=== PATIENT | male | born 1940 | race Caucasian/White ===

== ENCOUNTER 2017-01-30 07:34 | Day surgery (SDC) | payer OTHER ==
[2017-01-15 08:29] LABS: HEMATOCRIT 39.5 % (40.0-51.0); HEMOGLOBIN 12.9 g/dL (13.6-17.8)
[2017-01-15 08:50] LABS: CALCIUM, SERUM 8.5 MG/DL (8.5-10.4); CHLORIDE, SERUM 105 MMOL/L (96-112); CO2 (CARBON DIOXIDE) 27 MMOL/L (24-34); GFR AFRICAN AMERICAN 67 ML/MIN (>=60); GFR NON AFRICAN AMERICAN 58 ML/MIN (>=60); POTASSIUM, SERUM 4.9 MMOL/L (3.5-5.3); SODIUM, SERUM 140 MMOL/L (135-148)
[2017-01-15 08:52] LABS: BUN (BLOOD UREA NITROGEN) 26 MG/DL (6-23); GLUCOSE, SERUM 178 MG/DL (60-99)
--- NOTE | ~2017-01-30 | OP ---
Record Of Operation [facility] [address] [place]. [address] NAME: AVNI DAVISON : 38 STATUS : [facility]#: [id number] AGE: 76 ADM/REG DATE : 01/30/17 MR#: [id number] REPORT SERV DATE: 01/30/17 DICTATED BY: Sam DAO DATE: 01/30/17 REPORT STATUS : Draft TRANSCRIBED BY: JERE DATE: 01/30/17 DATE OF PROCEDURE: 01/30/2017 PREOPERATIVE DIAGNOSIS: Basal cell carcinoma of the right oriental orthodox. POSTOPERATIVE DIAGNOSIS: Basal cell carcinoma of the right oriental orthodox. PROCEDURE PERFORMED: 1. Wide excision of basal cell carcinoma of the right oriental orthodox with frozen section. 2. Surgical excisional preparation of right oriental orthodox defect. 3. Reconstruction of right oriental orthodox defect with inferior rotation flap closure. FINDINGS: A 2.2 cm diameter excision required to remove the basal cell carcinoma of the right oriental orthodox with margins; margins free of tumor. INDICATIONS: This 76-year-old gentleman has a biopsy-proven basal cell carcinoma of the right oriental orthodox. He was referred for definitive excision and reconstruction. The pros and cons, alternatives, benefits, risks, limitations, and complications of surgery were discussed at length. Complications such as nerve injury with paralysis of the forehead, numbness, infection, reaction to suture, scarring, recurrence of tumor, were discussed at length with the patient. No guarantees expressed. He understands and wishes to proceed. Proper consent obtained. No guarantees expressed. DESCRIPTION OF PROCEDURE: He was taken into the operating room and given general oral endotracheal anesthesia in the supine position. The table was turned. The entire face and right scalp and ear and right neck were prepped with Hibiclens and saline followed by isopropyl alcohol. None of these solutions got down in his ear canal. None of these solutions got in his eyes. The tumor was in the right oriental orthodox at approximately the level of the lateral canthus, midway between the sideburn and the lateral canthus. The tumor was marked out for the borders of the tumor and then, a 3.5 mm margin of safety was marked out around this, because the tumor was somewhat indistinct at its borders. The 12, 3, 6, and 9 o'clock positions were marked. The natural skin relaxed tension lines (quench lines) were marked out. The oriental orthodox and lateral eyelid and temporal scalp were injected with 1% Xylocaine with 1:100,000 epinephrine. Five minutes elapsed for vasoconstriction. According to the markings, including the margins, the tumor was incised at the skin and subcutaneous level. A suture was placed at the 12 o'clock position. The tumor was then removed in the subcutaneous plane. Hemostasis was obtained with pressure. The pathologist was brought into the room for orientation and to perform frozen sections. Frozen sections returned showing margins free of tumor. A long fusiform ellipse had been marked out from just in front of the attachment of the ear to the scalp laterally and almost to the lateral canthus medially. This fusiform ellipse Record Of Operation [place] [id number] [place]. [address] NAME: AVNI DAVISON : 38 STATUS : [facility] PAT#: [id number] AGE: 76 ADM/REG DATE : 01/30/17 MR#: [id number] REPORT SERV DATE: 01/30/17 DICTATED BY: Sam DAO DATE: 01/30/17 REPORT STATUS : Draft TRANSCRIBED BY: JERE DATE: 01/30/17 was excised. This surgically excisionally prepared the defect for rotation flap closure. The dissection was carried well above the course of the frontal branch of the facial nerve. Inferiorly above the level of this SMAS, flap was developed for approximately 2 cm and approximately 7 cm in length. This flap was rotated and secured with 5-0 and 6-0 Vicryl. The skin edges were cleansed with hydrogen peroxide and dried. Dermabond sealed the skin edges. Mastisol and paper tape were applied in an antitension fashion. He was awakened, extubated, taken to recovery room in good condition, having tolerated the procedure well. Home going instructions are to leave the tape on and recheck in the office in two weeks. He is not to get hot and sweaty. Prescriptions were written for cephalexin, hydrocodone, and Zofran. MARGARITA/JERE Sam Dao M.D. / [id number] CC: Evelyn Thompson M.D.
[~2017-01-30 07:34] MED LIST: ASAB PO; COREG25 PO; COSAMIN DS1 TAB PO; COZAAR100 MG PO; FLOMAX4 PO; GLUCCHONDR PO; GLUCOPHAGE1000 MG PO; IBU-200200 MG PO; INDO50 PO; LORT7 PO; METAMUCIL CAN7 OZ PO; MUCINEX600 MG PO; PERCOCET1 TA2 PO; Z300 PO; ZOCOR40 PO
== END 2017-01-30 14:42 | disposition home or self-care (01) ==
LOC: SDC 07:34
PROVIDERS: Specialist
PROC: 0HX1XZZ Transfer Face Skin, External Approach (ICD-10-PCS; principal; 2017-01-30 08:45)
DX: C44.319 Basal cell carcinoma of skin of other parts of face (principal); I10 Essential (primary) hypertension; E78.5 Hyperlipidemia, unspecified; E11.9 Type 2 diabetes mellitus without complications; E78.00 Pure hypercholesterolemia, unspecified; Z98.890 Other specified postprocedural states; Z79.82 Long term (current) use of aspirin; Z79.899 Other long term (current) drug therapy; Z90.89 Acquired absence of other organs; Z90.49 Acquired absence of other specified parts of digestive tract; Z82.49 Family history of ischemic heart disease and other diseases of the circulatory system
CPT/HCPCS: 80048; 82962; 85014; 85018; 88305; 88331; 88332; 93005; A9270-GY; J0330; J0690; J2405; J3010